=== PATIENT | female | born 2000 | race Caucasian/White ===

== ENCOUNTER 2020-12-01 17:44 | Emergency (ER) | payer SELFPAY ==
[~2020-12-01] VITALS: Ht 175.3 cm; Wt 79.5 kg
[2020-12-01 17:45] VITALS: BP 160/104
[2020-12-01] MEDS ORDERED: CONC27TA4 PO (18:19)
[2020-12-01] MEDS ORDERED: OMEGCAP9 PO (18:19)
[2020-12-01] MEDS ORDERED: CLAR10CA3 PO (18:19)
[2020-12-01] MEDS ORDERED: NUVAMIS2 PV (18:19)
[2020-12-01] MEDS ORDERED: MAGN250T11 PO (18:19)
[2020-12-01] MEDS ORDERED: MULT1TAB8 PO (18:19)
[2020-12-01] MEDS ORDERED: B-122500 PO (18:19)
[2020-12-01] MEDS ORDERED: NORT25CA2 PO (18:19)
[2020-12-01] MEDS ORDERED: FLON1SPR NARES (18:19)
[2020-12-01] MEDS ORDERED: ZONI100C17 PO (18:19)
[2020-12-01] MEDS ORDERED: MELA3TAB49 PO (18:19)
[2020-12-01] MEDS ORDERED: RIBO400T PO (18:19)
[2020-12-01] MEDS ORDERED: ZOFR4TAB16 PO (18:19)
[2020-12-01] MEDS ORDERED: LEXA1TAB2 PO (18:19)
== END 2020-12-01 20:00 | disposition left against medical advice (07) ==
LOC: M ED 17:44
DX: Z53.21 Procedure and treatment not carried out due to patient leaving prior to being seen by health care provider (principal)